=== PATIENT | male | born 1950 | race Caucasian/White ===

== ENCOUNTER 2018-11-16 14:52 | Emergency (ER) | payer MEDICARE ==
--- NOTE | 2018-11-16 16:00 | ED Physician Documentation ---
History of Present Illness - Stated complaint Stated Complaint: HI BP/PETERSON - Chief complaint Chief Complaint: Cardiac - Additonal information Additional information: This is a 68-year-old male with a history of hypertension, alcohol use who pr esents with headache and blurry vision. Patient states that he stopped drinking 5 days ago, he typically drinks 4+ alcoholic drinks a day. Since he stopped drinking he has had some increased blood pressure, he feels that his vision has been slightly blurry, he did see an sales office assistant and had a dilated eye exam which appeared normal, he still has some mild diffuse vision blurriness which she states is typical symptom when he has high blood pressure. He also has a tension-like headache over his bifrontal temporal regions, which is mild to moderate in severity. He is not on any blood pressure medications currently, he used to take lisinopril and losartan in the past. He denies any focal weakness, numbness, confusion, speech changes. No chest pain, no shortness of breath. No vomiting. Review of Systems Constitutional: denies: Fever Eyes: reports: Other (blurry vision) Cardiac: denies: Chest pain / pressure Respiratory: denies: Dyspnea Neurologic: reports: Headache Psychiatric: reports: Other (alcohol use) Endocrine: denies: Easy bruising / bleeding Immunocompromised: denies: Immunocompromised PD PAST MEDICAL HISTORY - Past Medical History Other Past Medical History: alcohol use, HTN - Present Medications Home Medications: Ambulatory Orders Medication Instructions Recorded Confirmed Butalb/Acetaminophen/Caffeine 1 each PO BID PRN #10 tablet 11/16/18 [[id number] 50-325-40] amLODIPine [Norvasc] 5 mg PO DAILY #14 tablet 11/16/18 - Allergies Allergies/Adverse Reactions: Allergies Allergy/AdvReac Type Severity Reaction Status Date / Time Sulfa (Sulfonamide Allergy Rash Verified 11/16/18 15:03 Antibiotics) - Living Situation Living Arrangement: reports: At home - Social History Does the pt drink ETOH?: Yes PD ED PE NORMAL - Vitals Vital signs reviewed: Yes - General General: Alert and oriented X 3, No acute distress - HEENT HEENT: Atraumatic, PERRL - Neck Neck: Supple, no meningeal sign - Cardiac Cardiac: RRR, No murmur - Respiratory Respiratory: No respiratory distress, Clear bilaterally - Abdomen Abdomen: Soft, Non tender, Non distended - Derm Derm: Warm and dry - Extremities Extremities: No deformity - Neuro Neuro: Alert and oriented X 3, hospital education coordinator 2-12 intact, No motor deficit, No sensory deficit, Normal speech - Psych Psych: Normal mood, Normal affect Results - Vitals Vitals: Vital Signs - 24 hr 11/16/18 11/16/18 11/16/18 14:59 15:55 16:30 Temperature Heart Rate 63 61 59 L Respiratory 18 20 16 Rate Blood Pressure 177/92 H 165/101 H 176/96 H O2 Saturation 98 99 97 11/16/18 11/16/18 11/16/18 16:35 16:40 16:52 Temperature Heart Rate 54 L 50 L 54 L Respiratory Rate Blood Pressure 150/96 H 141/84 H 153/87 H O2 Saturation 11/16/18 11/16/18 11/16/18 17:00 17:15 17:47 Temperature Heart Rate 55 L 57 L 58 L Respiratory Rate Blood Pressure 147/92 H 128/85 H 119/85 H O2 Saturation 11/16/18 11/16/18 18:11 19:00 Temperature 36.3 C L Heart Rate 54 L 54 L Respiratory 17 18 Rate Blood Pressure 129/82 H 131/85 H O2 Saturation 99 98 Oxygen O2 Source Room air - EKG (time done) 15:07 Other comments: Other comments (There is no ST segment elevation. axis normal. There is questionable mild less than 0.[address] depression in the 6, and lead II. Intervals are within normal limits.) - Labs Labs: Laboratory Tests 11/16/18 11/16/18 15:52 15:52 Sodium 140 Potassium 3.7 Chloride 104 Carbon Dioxide 24 Anion Gap 12.0 BUN 16 Creatinine 0.9 Estimated GFR (MDRD) 83 L Glucose 103 H Calcium 9.9 Troponin I High Sens 3.8 PD MEDICAL DECISION MAKING - ED course Complexity details: considered differential (HTN, hypertensive urgency, hyperte nsive emergency, tension headache, migraine, alcohol withdrawal, increased intracranial pressure) ED course: Pt presents with headache and high blood pressure, is BP is quite elevated in triage. His screening EKG shows slight lateral ST depression of unknown chronicity, He is not having any chest pain or shortness of breath, and his troponin is negative, making ACS unlikely. I disccussed that he has EKG abnormalities and should follow with his bagel maker. These may be signs of LVH, though he does not obviously meet EKG criteria today, but probably warrants an outpatient echo for evaluation. His neurologic exam is normal and he is well appearing, his symptoms have been ongoing for several days and I do not feel that head imaging will be revealing today. After a dose of labetalol his BP improved and pt's headache and vision improved. He is now feeling near-normal. No signs of severe alcohol withdrawal. Given how hypertensive he was, we discussed starting a low dose BP med and close follow up with his PCP, which patient would like to do. He has not tolerated lisinopril and losartan well in the past, and would prefer to avoid HCTZ due to BPH, so we will try amlodipine 5mg and he will follow up as soon as possible with his PCP. He was instructed to log his BP. Return precuations discussed and he was discharged home. Departure - Departure Disposition: 01 Home, Self Care Clinical Impression: Headache, Hypertension Condition: Good Instructions: ED Cephalgia Unspecified, ED Hypertension Conf Out Of Control Follow-Up: ANA FLORES MD [Primary Care Provider] - Within 1 week (For follow up on BP) Prescriptions: amLODIPine [Norvasc] 5 mg PO DAILY #14 tablet Butalb/Acetaminophen/Caffeine [[id number] 50-325-40] 1 each PO BID PRN #10 tablet PRN Reason: Headache Comments: You were seen today for high blood pressure and for headache. Your blood pressure was very high, and I think you need to be on blood pressure medication. You may start the amlodipine. Please follow-up with your primary care provider in the next week for recheck of your blood pressure and for discussion of Whether you need to be on a different dose or different medication. Log your blood pressure multiple times each day and bring this log to your appointment with your primary care provider. If you develop severe headache, vomiting, chest pain, or any other concerning symptoms please return to the emergency department. Discharge Date/Time: 11/16/18 19:00
[2018-11-16 16:07] LABS: CALCIUM 9.9 mg/dL (8.5-10.3); CREATININE 0.9 mg/dL (0.6-1.2)
[2018-11-16] MEDS ORDERED: LABETALOL 20 MG/4 ML SYRINGE IVP STA (16:17)
[2018-11-16 19:02] VITALS: BP 131/85
== END 2018-11-16 19:00 | disposition home or self-care (01) ==
LOC: ED 14:52
DX: I10 Essential (primary) hypertension (principal); R51 Headache; R94.31 Abnormal electrocardiogram [ECG] [EKG]
CPT/HCPCS: 36415; 80048; 84484; 93005; 96374; 99284

== ENCOUNTER 2018-12-17 05:58 | Emergency (ER) | payer MEDICARE, BC ==
[2018-12-17] MEDS ORDERED: SODIUM CHLORIDE 0.9% 1,000 ML IV ONE (06:10)
[2018-12-17] MEDS ORDERED: ONDANSETRON 4 MG/2 ML VIAL IVP STA (06:17)
[2018-12-17 06:29] LABS: BASOPHILS % (AUTO) 0.3 %; EOSINOPHILS # (AUTO) 0.1 10^3/uL (0.0-0.7); EOSINOPHILS % (AUTO) 0.7 %; HGB - HEMOGLOBIN 14.3 g/dL (14.0-18.0); LYMPHOCYTES % (AUTO) 10.7 %; MEAN CORPUSCULAR HEMOGLOBIN 30.8 pg (27.0-31.0); MEAN CORPUSCULAR HGB CONC 33.9 g/dL (32.0-36.0); MEAN CORPUSCULAR VOLUME 90.9 fL (80.0-94.0); MEAN PLATELET VOLUME 9.1 fL (7.4-11.4); MONOCYTES # (AUTO) 0.4 10^3/uL (0.0-1.0); MONOCYTES % (AUTO) 3.9 %; NEUTROPHILS # (AUTO) 7.6 10^3/uL (1.5-6.6); NEUTROPHILS % (AUTO) 84.2 %; PLT - PLATELET COUNT 228 10^3/uL (130-450); RED BLOOD COUNT 4.64 10^6/uL (4.70-6.10); RED CELL DISTRIBUTION WIDTH 13.3 % (12.0-15.0)
[2018-12-17 06:42] LABS: ALBUMIN/GLOBULIN RATIO 1.4 (1.0-2.2); BILIRUBIN,TOTAL 0.7 mg/dL (0.2-1.0); CALCIUM 10.1 mg/dL (8.5-10.3); CREATININE 0.8 mg/dL (0.6-1.2); TOTAL PROTEIN 8.5 g/dL (6.7-8.2)
[2018-12-17] MEDS ORDERED: PANTOPRAZOLE 40 MG VIAL IVP STA (07:02)
[2018-12-17 07:13] LABS: INR 1.1 (0.8-1.2); PT - PROTHROMBIN TIME 12.9 secs (9.9-12.6)
[2018-12-17] MEDS ORDERED: SUCRALFATE 1 GM/10 ML UDC PO STA (07:17)
[2018-12-17] MEDS ORDERED: MAG HYDROX/AL HYDROX/SIMETH 30 ML UDC PO STA (07:17)
[2018-12-17 07:20] LABS: PARTIAL THROMBOPLASTIN TIME 32.4 secs (24.9-33.3)
--- NOTE | 2018-12-17 07:27 | ED Physician Documentation ---
History of Present Illness - Stated complaint Stated Complaint: VOMITING BLOOD - Chief complaint Chief Complaint: Abd Pain - History obtained from History obtained from: Patient, Family - History of Present Illness Timing: Last night Pain level max: 4 Pain level now: 3 Improved by: nothing Worsened by: vomiting - Additonal information Additional information: 68-year-old male presents to the emergency department with vomiting after eating tacos last night. States that near the end of the vomiting he started to notice a small amount of blood in the emesis. This was after taking Pepto-Bismol. Currently feeling better. No history of varices or cirrhosis. Not on blood thinners. Nothing makes it better or worse. Review of Systems Ten Systems: 10 systems reviewed and negative Constitutional: denies: Fever, Chills Cardiac: denies: Chest pain / pressure Respiratory: denies: Cough GI: reports: Nausea, Vomiting. denies: Constipation, Diarrhea, Bloody / black stool : denies: Dysuria Skin: denies: Rash Musculoskeletal: denies: Neck pain, Back pain Neurologic: denies: Headache PD PAST MEDICAL HISTORY - Past Medical History Cardiovascular: Hypertension, High cholesterol Respiratory: None Endocrine/Autoimmune: None GI: None : Benign prostate hypertrophy HEENT: None Musculoskeletal: None Derm: None - Past Surgical History Past Surgical History: Yes General: Cholecystectomy - Present Medications Home Medications: Ambulatory Orders Medication Instructions Recorded Confirmed amLODIPine [Norvasc] 5 mg PO DAILY #14 tablet 11/16/18 12/17/18 Finasteride [Proscar] 5 mg PO DAILY 12/17/18 12/17/18 Ondansetron Odt [Zofran] 4 mg TL Q6H PRN #10 tablet 12/17/18 - Allergies Allergies/Adverse Reactions: Allergies Allergy/AdvReac Type Severity Reaction Status Date / Time Sulfa (Sulfonamide Allergy Rash Verified 12/17/18 06:08 Antibiotics) - Social History Does the pt smoke?: No Smoking Status: Never smoker Does the pt drink ETOH?: Yes Does the pt have substance abuse?: No PD ED PE NORMAL - Vitals Vital signs reviewed: Yes - General General: Alert and oriented X 3, No acute distress - HEENT HEENT: Moist mucous membranes - Neck Neck: Supple, no meningeal sign - Cardiac Cardiac: RRR - Respiratory Respiratory: No respiratory distress, Clear bilaterally - Abdomen Abdomen: Soft, Non tender, Non distended - Derm Derm: Warm and dry - Neuro Neuro: Alert and oriented X 3 - Psych Psych: Normal mood, Normal affect Results - Vitals Vitals: Vital Signs - 24 hr 12/17/18 12/17/18 12/17/18 06:00 06:42 07:00 Temperature 36.2 C L Heart Rate 66 57 L 61 Respiratory 16 17 17 Rate Blood Pressure 167/90 H 151/87 H 131/88 H O2 Saturation 97 97 97 12/17/18 12/17/18 12/17/18 07:30 08:38 10:00 Temperature Heart Rate 60 64 78 Respiratory 17 18 18 Rate Blood Pressure 144/83 H 120/81 H 132/81 H O2 Saturation 98 95 100 Oxygen O2 Source Room air - EKG (time done) 0612 Rate: Rate (enter#) (65) Rhythm: NSR [place]: Normal Intervals: Normal TN QRS: Normal Ischemia: Non specific changes - Labs Labs: Laboratory Tests 12/17/18 12/17/18 12/17/18 06:20 06:20 06:20 WBC 9.0 RBC 4.64 L Hgb 14.3 Hct 42.2 MCV 90.9 MCH 30.8 MCHC 33.9 RDW 13.3 Plt Count 228 MPV 9.1 Neut # (Auto) 7.6 H Lymph # (Auto) 1.0 L [place] # (Auto) 0.4 Eos # (Auto) 0.1 Baso # (Auto) 0.0 Absolute Nucleated RBC 0.00 Nucleated RBC % 0.0 PT 12.9 H INR 1.1 APTT 32.4 Sodium 140 Potassium 3.9 Chloride 103 Carbon Dioxide 25 Anion Gap 12.0 BUN 22 H Creatinine 0.8 Estimated GFR (MDRD) 96 Glucose 148 H Calcium 10.1 Total Bilirubin 0.7 AST 26 ALT 45 Alkaline Phosphatase 53 Total Protein 8.5 H Albumin 5.0 Globulin 3.5 Albumin/Globulin Ratio 1.4 Lipase 27 12/17/18 09:45 WBC 9.5 RBC 4.38 L Hgb 13.4 L Hct 39.7 L MCV 90.6 MCH 30.6 MCHC 33.8 RDW 13.5 Plt Count 211 MPV 9.0 Neut # (Auto) Lymph # (Auto) [place] # (Auto) Eos # (Auto) Baso # (Auto) Absolute Nucleated RBC Nucleated RBC % PT INR APTT Sodium Potassium Chloride Carbon Dioxide Anion Gap BUN Creatinine Estimated GFR (MDRD) Glucose Calcium Total Bilirubin AST ALT Alkaline Phosphatase Total Protein Albumin Globulin Albumin/Globulin Ratio Lipase PD MEDICAL DECISION MAKING - ED course Complexity details: reviewed results, re-evaluated patient, considered differential, d/w patient, d/w family ED course: Patient is well-appearing, nontoxic. Afebrile. Abdomen is soft, nontender nondistended. No further vomiting in the emergency department. No significant hemoglobin drop other than what would be expected from the IV fluids received. Weakly positive Gastroccult. Possible that part of the blood he saw was Pepto- Bismol. No history of cirrhosis or varices. We will have him follow-up with his doctor closely for further evaluation and care. Patient is well-appearing, nontoxic. Afebrile. Abdomen is soft, nontender nondistended on serial exam. No hemodynamic instability. Patient counseled regarding signs and symptoms for which I believe and urgent re-evaluation would be necessary. Patient with good understanding of and agreement to plan and is comfortable going home at this time This document was made in part using voice recognition software. While efforts are made to proofread this document, sound alike and grammatical errors may occur. Departure - Departure Disposition: 01 Home, Self Care Clinical Impression: Vomiting Qualifiers: Vomiting type: unspecified Vomiting Intractability: non-intractable Nausea presence: with nausea Qualified Code(s): R11.2 - Nausea with vomiting, unspec ified Hematemesis Qualifiers: Nausea presence: with nausea Qualified Code(s): K92.0 - Hematemesis Condition: Good Instructions: ED Nausea Vomiting Follow-Up: your,doctor in 3 days [Other] Prescriptions: Ondansetron Odt [Zofran] 4 mg TL Q6H PRN #10 tablet PRN Reason: Nausea / Vomiting Comments: Follow-up with your doctor for further care. Return if you worsen. Your blood counts are stable today. Drink plenty of fluids today. Avoid spicy and fried foods today. Discharge Date/Time: 12/17/18 10:38
[2018-12-17 09:48] LABS: HGB - HEMOGLOBIN 13.4 g/dL (14.0-18.0); MEAN CORPUSCULAR HEMOGLOBIN 30.6 pg (27.0-31.0); MEAN CORPUSCULAR HGB CONC 33.8 g/dL (32.0-36.0); MEAN CORPUSCULAR VOLUME 90.6 fL (80.0-94.0); RED BLOOD COUNT 4.38 10^6/uL (4.70-6.10); RED CELL DISTRIBUTION WIDTH 13.5 % (12.0-15.0); WHITE BLOOD COUNT 9.5 x10^3/uL (4.8-10.8)
[2018-12-17 10:36] VITALS: BP 132/81
== END 2018-12-17 10:38 | disposition home or self-care (01) ==
LOC: ED 05:58
DX: K92.0 Hematemesis (principal); I10 Essential (primary) hypertension
CPT/HCPCS: 36415; 80053; 83690; 85025; 85027; 85610; 85730; 93005; 96361; 96374; 96375; 99284; A9270

== ENCOUNTER 2021-07-03 09:03 | Outpatient (CLI) | payer MEDICARE ==
[2021-07-03 15:43] LABS: CHOL/HDL RATIO 2.5 (<5.0); CHOLESTEROL 141 mg/dL; HDL CHOLESTEROL 57 mg/dL; LDL CHOLESTEROL,CALCULATED 69 mg/dL; LDL/HDL RATIO 1.2 (<3.6); TRIGLYCERIDES 75 mg/dL; VLDL CHOLESTEROL 15 mg/dL
== END 2021-07-03 09:04 | disposition home or self-care (01) ==
LOC: LAB.S 09:03
PROVIDERS: ATTEND Specialist
DX: R07.9 Chest pain, unspecified (principal); Z82.49 Family history of ischemic heart disease and other diseases of the circulatory system
CPT/HCPCS: 36415; 80061; 83721

== ENCOUNTER 2022-07-22 09:09 | Outpatient (CLI) | payer MEDICARE ==
[2022-07-22 14:47] LABS: HCT - HEMATOCRIT 41.8 % (42.0-52.0); MEAN CORPUSCULAR HEMOGLOBIN 29.4 pg (27.0-31.0); MEAN CORPUSCULAR HGB CONC 33.5 g/dL (32.0-36.0); MEAN CORPUSCULAR VOLUME 87.6 fL (80.0-94.0); MEAN PLATELET VOLUME 9.2 fL (7.4-11.4); RED BLOOD COUNT 4.77 10^6/uL (4.70-6.10); RED CELL DISTRIBUTION WIDTH 14.1 % (12.0-15.0); WHITE BLOOD COUNT 5.2 x10^3/uL (4.8-10.8)
[2022-07-22 15:10] LABS: ALBUMIN 4.5 g/dL (3.2-5.5); ALBUMIN/GLOBULIN RATIO 1.4 (1.0-2.2); ALKALINE PHOSPHATASE 49 IU/L (42-121); ALT ALANINE AMINOTRANSFERASE 51 IU/L (10-60); AST ASPARTATE AMINOTRANSFERASE 27 IU/L (10-42); BILIRUBIN,TOTAL 0.4 mg/dL (0.2-1.0); BUN - BLOOD UREA NITROGEN 17 mg/dL (6-20); CALCIUM 9.5 mg/dL (8.5-10.3); CARBON DIOXIDE - CO2 25 mmol/L (21-32); CHLORIDE 108 mmol/L (101-111); CHOL/HDL RATIO 2.6 (<5.0); CHOLESTEROL 148 mg/dL; CREATININE 0.8 mg/dL (0.6-1.2); GFR - MDRD 95 (>89); GLUCOSE 102 mg/dL (70-100); HDL CHOLESTEROL 57 mg/dL; LDL CHOLESTEROL,CALCULATED 78 mg/dL; LDL/HDL RATIO 1.4 (<3.6); POTASSIUM 4.3 mmol/L (3.5-5.0); SODIUM 138 mmol/L (135-145); TOTAL PROTEIN 7.8 g/dL (6.7-8.2); TRIGLYCERIDES 63 mg/dL; VLDL CHOLESTEROL 13 mg/dL
[2022-07-22 20:31] LABS: ESTIMATED AVERAGE GLUCOSE 120 mg/dL (70-100); HEMOGLOBIN A1c% 5.8 % (4.27-6.07)
== END 2022-07-22 09:10 | disposition home or self-care (01) ==
LOC: LAB.S 09:09
PROVIDERS: ATTEND Student in an Organized Health Care Education/Training Program
DX: I25.10 Atherosclerotic heart disease of native coronary artery without angina pectoris (principal)
CPT/HCPCS: 36415; 80053; 80061; 83036; 83721; 85027

== ENCOUNTER 2023-05-12 10:30 | Outpatient (CLI) | payer MEDICARE | END 2023-05-12 10:31 | disposition home or self-care (01) | LOC: DI 10:30 | PROVIDERS: ATTEND Internal Medicine | DX: I07.1 Rheumatic tricuspid insufficiency (principal); R06.09 Other forms of dyspnea | CPT/HCPCS: 93307 ==

== ENCOUNTER 2023-11-23 09:11 | Outpatient (CLI) | payer MEDICARE ==
[2023-11-23 14:47] LABS: HCT - HEMATOCRIT 42.5 % (42.0-52.0); HGB - HEMOGLOBIN 14.1 g/dL (14.0-18.0); MEAN CORPUSCULAR HEMOGLOBIN 29.1 pg (27.0-31.0); MEAN CORPUSCULAR HGB CONC 33.2 g/dL (32.0-36.0); MEAN CORPUSCULAR VOLUME 87.6 fL (80.0-94.0); MEAN PLATELET VOLUME 9.2 fL (7.4-11.4); RED BLOOD COUNT 4.85 10^6/uL (4.70-6.10); RED CELL DISTRIBUTION WIDTH 14.3 % (12.0-15.0); WHITE BLOOD COUNT 5.8 x10^3/uL (4.8-10.8)
[2023-11-23 15:57] LABS: ALBUMIN 4.5 g/dL (3.2-5.5); ALBUMIN/GLOBULIN RATIO 1.7 (1.0-2.2); ALKALINE PHOSPHATASE 59 IU/L (42-121); ALT ALANINE AMINOTRANSFERASE 42 IU/L (10-60); AST ASPARTATE AMINOTRANSFERASE 22 IU/L (10-42); BILIRUBIN,TOTAL 0.4 mg/dL (0.2-1.0); BUN - BLOOD UREA NITROGEN 11 mg/dL (6-20); CALCIUM 9.5 mg/dL (8.5-10.3); CARBON DIOXIDE - CO2 24 mmol/L (21-32); CHLORIDE 106 mmol/L (101-111); CHOL/HDL RATIO 2.6 (<5.0); CHOLESTEROL 153 mg/dL; CREATININE 0.8 mg/dL (0.6-1.3); GFR - MDRD 94 (>89); GLUCOSE 96 mg/dL (74-104); HDL CHOLESTEROL 58 mg/dL; LDL CHOLESTEROL,CALCULATED 62 mg/dL; LDL/HDL RATIO 1.1 (<3.6); POTASSIUM 4.1 mmol/L (3.5-4.5); SODIUM 137 mmol/L (135-145); TOTAL PROTEIN 7.1 g/dL (6.4-8.9); TRIGLYCERIDES 163 mg/dL; VLDL CHOLESTEROL 33 mg/dL
[2023-11-23 20:07] LABS: ESTIMATED AVERAGE GLUCOSE 117 mg/dL (70-100); HEMOGLOBIN A1c% 5.7 % (4.27-6.07)
== END 2023-11-23 09:12 | disposition home or self-care (01) ==
LOC: LAB.S 09:11
PROVIDERS: ATTEND Student in an Organized Health Care Education/Training Program
DX: K76.0 Fatty (change of) liver, not elsewhere classified (principal); I70.0 Atherosclerosis of aorta
CPT/HCPCS: 36415; 80053; 80061; 83036; 83721; 85027